=== PATIENT | female | born 1960 | race Asian ===

== ENCOUNTER 2019-03-02 07:38 | Emergency (ER) | payer MEDICAID ==
[~2019-03-02] VITALS: Ht 162.6 cm; Wt 61.2 kg
[2019-03-02 07:40] VITALS: BP 173/96
--- NOTE | 2019-03-02 07:40 | NUR ---
ED Nurse Note: Pt maintained on spinal precautions.
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
[2019-03-02] MEDS ORDERED: HYDROcodone/Acetamin 5/325 tab PO ONE (07:45)
--- NOTE | 2019-03-02 07:45 | NUR ---
ED Nurse Note: Applied cervical collar as ordered. Patient tolerated the procedure with minimal discomfort.
[2019-03-02] MEDS ORDERED: [UNRECOGNIZED DRUG - REMARK] ORAL (07:51)
--- NOTE | 2019-03-02 07:56 | NUR ---
ED Nurse Note: Pt still on stable condition. Daughter on bedside.
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
--- NOTE | 2019-03-02 08:12 | NUR ---
ED Nurse Note: CT on bedside.
--- NOTE | 2019-03-02 08:18 | NUR ---
Diony stephens in EDM - 03/02/19 at 0828 by [email or web address] ED Nurse Note: CT done.
--- NOTE | 2019-03-02 08:56 | Diagnostic Imaging Report ---
EXAM: XR Right Shoulder Complete, 2 or More Views CLINICAL HISTORY: PAIN TECHNIQUE: Two or more views of the right shoulder. COMPARISON: No relevant prior studies available. FINDINGS: Bones/joints: Small calcification at the greater tuberosity humeral head, may be calcific tendinosis or old injury. Mild degenerative changes acromioclavicular joint. Glenohumeral joint intact. No acute fracture. No dislocation. Soft tissues: Unremarkable. IMPRESSION: 1. No acute fracture or malalignment. 2. Small calcification at the greater tuberosity humeral head, may be calcific tendinosis or old injury.
[2019-03-02 09:00] VITALS: BP 147/69
--- NOTE | 2019-03-02 09:02 | NUR ---
ED Nurse Note: Pt still on stable condition, no signs of any respiratory distress. Pt still verbalizing feeling of 4/10 pain.
--- NOTE | 2019-03-02 09:47 | Diagnostic Imaging Report ---
EXAM: CT Cervical Spine Without Intravenous Contrast CLINICAL HISTORY: PAIN TECHNIQUE: Axial computed tomography images of the cervical spine without intravenous contrast. CTDI is 7.1 mGy and DLP is 192.4 mGy-cm. One or more of the following dose reduction techniques were used: automated exposure control, adjustment of the mA and/or kV according to patient size, use of iterative reconstruction technique. COMPARISON: No relevant prior studies available. FINDINGS: No fracture or subluxations are noted. The vertebral body heights and alignment are preserved. No prevertebral soft tissue swelling. Note is made of mild multilevel cervical spondylosis with varying degrees of central canal and foramina stenoses. C3-4 right far lateral mild disc osteophyte complex. C4-5 right far lateral mild lateral disc osteophyte complex. C5-6 right far lateral moderate to large disc osteophyte complex extending to the right neural foraminal. Moderate effacement of the right anterior thecal sac and severe effacement of the right neural foramina likely touching the nerve root. Biapical pleural-parenchymal lung scarring. IMPRESSION: 1. No cervical fractures. 2. Multilevel right far lateral disc osteophyte complexes. This is most predominant at C5-6 with moderate effacement of the right anterior thecal sac and severe effacement of the right neural foramina likely touching the exiting nerve root.
--- NOTE | 2019-03-02 09:50 | NUR ---
ED Nurse Note: Pt still on stable condition. ERMD on bedside. Cervical immobilizer removed as per CT result; MD aware. Pt ambulated to urinate, assisted by daughter. Will continue to monitor.
[2019-03-02] MEDS ORDERED: ROBAXIN-750750 MG PO (09:57)
[2019-03-02] MEDS ORDERED: LIDODERM700 M1 TOPIC (09:57)
[2019-03-02] MEDS ORDERED: IBUPROFEN600 MG ORAL (09:57)
--- NOTE | 2019-03-02 10:12 | NUR ---
ER DISCHARGE NOTE: Pt is medically cleared to be discharged per ERMD, pt is aox4, on room air, VSS. pt was given dc and prescription instructions, pt and family member was able to verbalize understanding, pt id band and iv site removed without complications. pt is able to ambulate with minimal assistance, accompanied and assisted by daughter. pt took all belongings.
[2019-03-02 10:15] VITALS: BP 174/94
== END 2019-03-02 10:12 | disposition home or self-care (01) ==
LOC: EDBD 07:38 → EMR 08:05
DX: S16.1XXA Strain of muscle, fascia and tendon at neck level, initial encounter (principal); M25.511 Pain in right shoulder; V43.62XA Car passenger injured in collision with other type car in traffic accident, initial encounter; Y92.410 Unspecified street and highway as the place of occurrence of the external cause; E11.9 Type 2 diabetes mellitus without complications; I10 Essential (primary) hypertension
CPT/HCPCS: 72125; 73030; Z7502; 99284